=== PATIENT | male | born 2000 | race Caucasian/White ===

== ENCOUNTER → 2025-05-17 | Emergency (ER) | payer SELFPAY ==
[~2025-05-17] VITALS: Ht 190.5 cm; Wt 89.8 kg
[2025-05-17 15:17] VITALS: BP 116/74; TEMP 98.1; O2SAT 100
[2025-05-17] MEDS: RABIES VACCINE (PCEC)/PF 1 EA KIT IM ONE (16:00)
[2025-05-17] MEDS: RABIES IMMUNE GLOBULIN/PF 150 UNIT/ML VIAL IM ONE (16:00)
== END | disposition home or self-care (01) ==
LOC: ER 16:00
DX: Z20.3 Contact with and (suspected) exposure to rabies (principal); Z23 Encounter for immunization
CPT/HCPCS: 90375

== ENCOUNTER 2025-05-24 12:13 | Emergency (ER) | payer BC ==
[~2025-05-24] VITALS: Ht 190.5 cm; Wt 90.7 kg
[2025-05-24 12:42] VITALS: BP 104/56; TEMP 98.2; O2SAT 97
[2025-05-24] MEDS ORDERED: RABIES VACCINE (PCEC)/PF 1 EA KIT IM ONE (13:18)
[2025-05-24] MEDS: RABIES VACCINE (PCEC)/PF 1 EA KIT IM ONE (13:33)
== END 2025-05-24 13:36 | disposition home or self-care (01) ==
LOC: ER 12:30
DX: Z20.3 Contact with and (suspected) exposure to rabies (principal); Z23 Encounter for immunization

== ENCOUNTER 2025-05-31 16:24 | Emergency (ER) | payer BC ==
[~2025-05-31] VITALS: Ht 190.5 cm; Wt 90.7 kg
[2025-05-31 16:29] VITALS: BP 122/86; TEMP 97.9; O2SAT 100
[2025-05-31] MEDS ORDERED: RABIES VACCINE (PCEC)/PF 1 EA KIT IM ONE (16:38)
[2025-05-31] MEDS: RABIES VACCINE (PCEC)/PF 1 EA KIT IM ONE (16:45)
== END 2025-05-31 16:47 | disposition home or self-care (01) ==
LOC: ER 16:26
DX: Z20.3 Contact with and (suspected) exposure to rabies (principal); Z23 Encounter for immunization